=== PATIENT | male | born 1950 | race Asian ===

== ENCOUNTER 2019-07-16 05:28 | Emergency (ER) | payer MEDICARE, OTHER, SELFPAY ==
[2019-07-16 05:40] VITALS: BP 164/76; PULSE 75; RESP 18; TEMP 36.7; O2SAT 98; BMI 27.3
--- NOTE | 2019-07-16 06:09 | DI.CT.S_ITS ---
PROCEDURE: CT HEAD/BRAIN WO CON INDICATIONS: Syncope, hit his head with a fall, on Xarelto TECHNIQUE: Noncontrast 4.5 mm thick angled axial sections acquired from the foramen magnum to the vertex, with coronal and sagittal reformats. For radiation dose reduction, the following was used: automated exposure control, adjustment of mA and/or kV according to patient size. COMPARISON: None. FINDINGS: Image quality: Excellent. CSF spaces: Basal cisterns are patent. No extra-axial fluid collections. The ventricles are symmetric in size and shape. Brain: No intracranial bleeds or masses. There is cerebral volume loss for age, with resultant ventricular and sulcal prominence. There are periventricular and deep white matter chronic small vessel ischemic changes. There is intracranial internal carotid artery atherosclerosis. Skull and face: Calvarium and visualized facial bones appear intact, without suspicious lesions. Sinuses: Visualized sinuses and mastoids are clear. IMPRESSION: No acute process. Concordant with preliminary interpretation. Dictated by: Marylou Vang M.D. on 07/16/2019 at 7:58 Approved by: Marylou Vang M.D. on 07/16/2019 at 7:59
--- NOTE | 2019-07-16 06:09 | DI.RAD.S_ITS ---
PROCEDURE: XR CHEST 1V INDICATIONS: Syncope TECHNIQUE: One view of the chest was acquired. COMPARISON: None. FINDINGS: Surgical changes and devices: Left-sided pacer. Lungs and pleura: Lungs are clear. No pleural effusions or pneumothorax. Mediastinum: Mediastinal contours appear normal. Heart size is normal. Bones and chest wall: No suspicious bony lesions. Overlying soft tissues appear unremarkable. IMPRESSION: No acute process. Dictated by: Marylou Vang M.D. on 07/16/2019 at 7:30 Approved by: Marylou Vang M.D. on 07/16/2019 at 7:36
--- NOTE | 2019-07-16 06:13 | ED.GENADULT ---
HPI - General Adult <Isabella Bedolla MD - Last Filed: 07/16/19 06:56> General Chief complaint: Syncope Stated complaint: Syncopal episode x2 Time Seen by Provider: 07/16/19 05:43 History of Present Illness HPI narrative: 68-year-old gentleman with history of prior syncope leading to pacemaker placement, anticoagulation due to pacemaker placement, hypertension, hyperlipidemia who presents after 2 episodes of syncope and the 3rd of near syncope that was averted by having him lay back down. Apparently he got up this morning around 430 to go to the bathroom took a few steps forward and then apparently lost consciousness and fell backward. He did hit his head on the edge of a wall and does have a small contusion to the occiput. His reports that there was no loss of bowel or bladder and no significant seizure activity. He was somewhat slow in the 1st couple of minutes. He does not remember any palpation, shortness of breath or sensation prior to the episode. His helped him into the bathroom and apparently had another episode where he fell between the toilet and the wall landing on his left shoulder. He has no recollection of this. After that episode he again tried to sit up and was looking like he was going to pass out again and at that point his had him lay back down and called 911. He has been otherwise well until this episode approximately 430 this morning. Related Data Allergies Allergy/AdvReac Type Severity Reaction Status Date / Time No Known Drug Allergies Allergy Verified 07/16/19 06:49 Review of Systems <Isabella Bedolla MD - Last Filed: 07/16/19 06:56> Review of Systems Narrative: Denies ? fever ? cough ? cold ? chills ? chest pain ? dyspnea ? orthopnea ? wheezing ? abdominal pain ? change to bowel or bladder habits ? nausea vomiting ? skin changes ? rashes Patient History <Isabella Bedolla MD - Last Filed: 07/16/19 06:56> Medical History (Updated 07/16/19 @ 09:24 by Jim Calderon DO) Hyperlipidemia (Acute) Hypertension (Acute) Pacemaker (Acute) Syncope (Acute) Social History Smoking Status: Current every day smoker Exam <Isabella Bedolla MD - Last Filed: 07/16/19 06:56> Narrative Exam Narrative: General: Slightly pale but in no acute distress. Able to give a complete and coherent history. Well-nourished well-developed HEENT: Moist mucous membranes, normal sclera with reactive pupils, mild contusion to the left occipital area without bleeding or laceration Neck: No JVD, supple, no point tenderness along the cervical axial skeleton or occipital insertion points Respiratory: Lungs are clear to auscultation, no wheezing no rales no rhonchi. Full and symmetrical air movement Cardiac: Regular rate and rhythm no murmurs no bruits, pacemaker site in the left upper chest wall nontender non inflamed Abdomen: Soft nontender good bowel tones, no flank pain Skin: Warm and dry, no rashes Neurologic: Grossly neurologically intact with no obvious asymmetries or abnormalities Extremities: Developing ecchymosis to the anterior left shoulder from where he fell. He has full range of motion at the shoulder joint elbow and wrist without any bony tenderness. Skin is otherwise well perfused Psych: Cooperative, appropriate insight and affect Initial Vital Signs Initial Vital Signs: Vital Signs Temperature 98.0 F 07/16/19 05:40 Pulse Rate 75 07/16/19 05:40 Respiratory Rate 18 07/16/19 05:40 Blood Pressure 164/76 H 07/16/19 05:40 Pulse Oximetry 98 07/16/19 05:40 <Jim Calderon DO - Last Filed: 07/16/19 09:24> Initial Vital Signs Initial Vital Signs: Vital Signs Temperature 98.0 F 07/16/19 05:40 Pulse Rate 75 07/16/19 05:40 Respiratory Rate 18 07/16/19 05:40 Blood Pressure 164/76 H 07/16/19 05:40 Pulse Oximetry 98 07/16/19 05:40 Course <Isabella Bedolla MD - Last Filed: 07/16/19 06:56> Orders Ordered: ED Orders 07/16/19 05:35 EKG-12 Lead Routine 07/16/19 06:09 CT head/brain wo con Stat XR chest 1V Stat 07/16/19 06:15 Complete Blood Count AUTO DIFF Stat Comprehensive Metabolic Panel Stat D Dimer Stat Troponin & CK Cardiac Panel Stat 07/16/19 08:00 Urine Microscopic Stat 07/16/19 08:26 Troponin I Stat Sodium Chloride (Normal Saline 0.9%) 1,000 mls @ 150 mls/hr IV CONT SHERI Last Admin: 07/16/19 07:29 Dose: Not Given Documented by: MAURO Discontinued Medications Sodium Chloride (Normal Saline 0.9%) 500 mls @ 1,000 mls/hr IV BOLUS ONE Stop: 07/16/19 07:59 Last Admin: 07/16/19 07:25 Dose: 1,000 mls/hr Documented by: MAURO Vital Signs Vital signs: Vital Signs - 8 hr 07/16/19 05:40 07/16/19 07:52 Temperature 98.0 F Pulse Rate 75 61 Respiratory Rate 18 18 Blood Pressure 164/76 H Blood Pressure [Left Arm] 147/72 H Pulse Oximetry 98 99 <Jim Calderon DO - Last Filed: 07/16/19 09:24> Orders Ordered: ED Orders 07/16/19 05:35 EKG-12 Lead Routine 07/16/19 06:09 CT head/brain wo con Stat XR chest 1V Stat 07/16/19 06:15 Complete Blood Count AUTO DIFF Stat Comprehensive Metabolic Panel Stat D Dimer Stat Troponin & CK Cardiac Panel Stat 07/16/19 08:00 Urine Microscopic Stat 07/16/19 08:26 Troponin I Stat Sodium Chloride (Normal Saline 0.9%) 1,000 mls @ 150 mls/hr IV CONT SHERI Last Admin: 07/16/19 07:29 Dose: Not Given Documented by: MAURO Discontinued Medications Sodium Chloride (Normal Saline 0.9%) 500 mls @ 1,000 mls/hr IV BOLUS ONE Stop: 07/16/19 07:59 Last Admin: 07/16/19 07:25 Dose: 1,000 mls/hr Documented by: MAURO Vital Signs Vital signs: Vital Signs - 8 hr 07/16/19 05:40 07/16/19 07:52 Temperature 98.0 F Pulse Rate 75 61 Respiratory Rate 18 18 Blood Pressure 164/76 H Blood Pressure [Left Arm] 147/72 H Pulse Oximetry 98 99 Medical Decision Making <Isabella Bedolla MD - Last Filed: 07/16/19 06:56> Lab Data Lab results reviewed: Yes I reviewed the patient's lab results. Lab results narrative: Initial labs are unremarkable. Would like to repeat a 2nd troponin at approximately 8:15 a.m. to make sure that there's no increases to be more concerned about acute coronary syndrome. Result diagrams: 07/16/19 06:15 07/16/19 06:15 Labs: Lab Results 07/16/19 07/16/19 07/16/19 Range/Units 06:15 06:15 06:15 WBC 11.5 H (4.5-11.0) X10^3/uL RBC 3.95 L (4.5-5.9) X10^6/uL Hgb 12.6 L (13.5-17.5) g/dL Hct 37.6 L (41-53) % MCV 95.2 (80-100) fL MCH 31.9 (26-34) PG MCHC 33.5 (30-36) % RDW 12.5 (11.6-14.8) % Plt Count 180 (150-400) X10^3/uL Neut % (Auto) 50.0 (50-75) % Lymph % (Auto) 38.2 (25-40) % [place] % (Auto) 9.7 (3-14) % Eos % (Auto) 1.0 L (2-4) % Baso % (Auto) 1.1 (0-2) % Neut # (Auto) 5800 (5076-1279) /uL Lymph # (Auto) 4400 (5577-7765) /uL [place] # (Auto) 1100 H (0-900) /uL Eos # (Auto) 100 (0-450) /uL Baso # (Auto) 100 (0-100) /uL D-Dimer < 200 (<230) ng/mL Sodium 137 (137-145) mmol/L Potassium 4.4 (3.4-5.1) mmol/L Chloride 103 (98-107) mmol/L Carbon Dioxide 28 (22-32) mmol/L BUN 21 H (9-20) mg/dL Creatinine 1.00 (0.66-1.25) mg/dL Estimated GFR > 60.0 (>60) mL/min BUN/Creatinine Ratio 21.0 (6-22) Glucose 107 (80-110) mg/dL Calcium 8.5 (8.4-10.2) mg/dL Total Bilirubin 0.6 (0.2-1.3) mg/dL AST 28 (17-59) IU/L ALT 24 (<50) IU/L Alkaline Phosphatase 77 (38-126) U/L Total Creatine Kinase 69 (55-170) U/L CK-MB (CK-2) TNP CK-MB (CK-2) Rel Index TNP Troponin I < 0.012 (0.01-0.034) ng/mL Total Protein 8.1 (6.3-8.2) g/dL Albumin 4.4 (3.5-5.0) g/dL Globulin 3.7 (1.7-4.1) g/dL Albumin/Globulin Ratio 1.2 (1.0-2.8) Urine RBC (0-5/HPF) Urine WBC (0-5/HPF) Urine Bacteria (None) Ur Culture Indicated? Micro UA Comment 07/16/19 07/16/19 Range/Units 08:00 08:26 WBC (4.5-11.0) X10^3/uL RBC (4.5-5.9) X10^6/uL Hgb (13.5-17.5) g/dL Hct (41-53) % MCV (80-100) fL MCH (26-34) PG MCHC (30-36) % RDW (11.6-14.8) % Plt Count (150-400) X10^3/uL Neut % (Auto) (50-75) % Lymph % (Auto) (25-40) % [place] % (Auto) (3-14) % Eos % (Auto) (2-4) % Baso % (Auto) (0-2) % Neut # (Auto) (5696-0743) /uL Lymph # (Auto) (9423-9308) /uL [place] # (Auto) (0-900) /uL Eos # (Auto) (0-450) /uL Baso # (Auto) (0-100) /uL D-Dimer (<230) ng/mL Sodium (137-145) mmol/L Potassium (3.4-5.1) mmol/L Chloride (98-107) mmol/L Carbon Dioxide (22-32) mmol/L BUN (9-20) mg/dL Creatinine (0.66-1.25) mg/dL Estimated GFR (>60) mL/min BUN/Creatinine Ratio (6-22) Glucose (80-110) mg/dL Calcium (8.4-10.2) mg/dL Total Bilirubin (0.2-1.3) mg/dL AST (17-59) IU/L ALT (<50) IU/L Alkaline Phosphatase (38-126) U/L Total Creatine Kinase (55-170) U/L CK-MB (CK-2) CK-MB (CK-2) Rel Index Troponin I < 0.012 (0.01-0.034) ng/mL Total Protein (6.3-8.2) g/dL Albumin (3.5-5.0) g/dL Globulin (1.7-4.1) g/dL Albumin/Globulin Ratio (1.0-2.8) Urine RBC None seen (0-5/HPF) Urine WBC None seen (0-5/HPF) Urine Bacteria None seen (None) Ur Culture Indicated? Cult not indicated Micro UA Comment Microscopic normal Urine Dip Bedside Urine Glucose Negative Bedside Urine Bilirubin - Negative Bedside Urine Ketone - Negative Urine Specific [place] 1.020 Bedside Urine Occult Blood +/- Bedside Urine pH 6.0 Bedside Urine Protein +/- 15 Bedside Urine Urobilinogen - Negative Bedside Urine Nitrite - Negative Bedside Urine Leukocytes - Negative Esterase Point of care testing: Urine Dip Bedside Urine Glucose Negative Bedside Urine Bilirubin - Negative Bedside Urine Ketone - Negative Urine Specific [place] 1.020 Bedside Urine Occult Blood +/- Bedside Urine pH 6.0 Bedside Urine Protein +/- 15 Bedside Urine Urobilinogen - Negative Bedside Urine Nitrite - Negative Bedside Urine Leukocytes - Negative Esterase Imaging Data Chest x-ray: Attestation: I personally reviewed and interpreted this imaging study as follows: My Impression: No acute findings on chest x-ray, pacemaker is in place no widened mediastinum, no pneumothorax, no infiltrate, normal cardiac silhouette ECG Data Attestation: I personally reviewed and interpreted this ECG as follows: Interpretation: Sinus rhythm at a rate of 65 with a first-degree atrioventricular block. No significant ST T wave changes and no acute ischemia. MDM Narrative Medical decision making narrative: Pacemaker has been interrogated. There are no rhythm abnormalities appreciated over the time of his syncopal episodes. <Jim Calderon DO - Last Filed: 07/16/19 09:24> Lab Data Labs: Lab Results 07/16/19 07/16/19 07/16/19 Range/Units 06:15 06:15 06:15 WBC 11.5 H (4.5-11.0) X10^3/uL RBC 3.95 L (4.5-5.9) X10^6/uL Hgb 12.6 L (13.5-17.5) g/dL Hct 37.6 L (41-53) % MCV 95.2 (80-100) fL MCH 31.9 (26-34) PG MCHC 33.5 (30-36) % RDW 12.5 (11.6-14.8) % Plt Count 180 (150-400) X10^3/uL Neut % (Auto) 50.0 (50-75) % Lymph % (Auto) 38.2 (25-40) % [place] % (Auto) 9.7 (3-14) % Eos % (Auto) 1.0 L (2-4) % Baso % (Auto) 1.1 (0-2) % Neut # (Auto) 5800 (0001-0286) /uL Lymph # (Auto) 4400 (8461-6473) /uL [place] # (Auto) 1100 H (0-900) /uL Eos # (Auto) 100 (0-450) /uL Baso # (Auto) 100 (0-100) /uL D-Dimer < 200 (<230) ng/mL Sodium 137 (137-145) mmol/L Potassium 4.4 (3.4-5.1) mmol/L Chloride 103 (98-107) mmol/L Carbon Dioxide 28 (22-32) mmol/L BUN 21 H (9-20) mg/dL Creatinine 1.00 (0.66-1.25) mg/dL Estimated GFR > 60.0 (>60) mL/min BUN/Creatinine Ratio 21.0 (6-22) Glucose 107 (80-110) mg/dL Calcium 8.5 (8.4-10.2) mg/dL Total Bilirubin 0.6 (0.2-1.3) mg/dL AST 28 (17-59) IU/L ALT 24 (<50) IU/L Alkaline Phosphatase 77 (38-126) U/L Total Creatine Kinase 69 (55-170) U/L CK-MB (CK-2) TNP CK-MB (CK-2) Rel Index TNP Troponin I < 0.012 (0.01-0.034) ng/mL Total Protein 8.1 (6.3-8.2) g/dL Albumin 4.4 (3.5-5.0) g/dL Globulin 3.7 (1.7-4.1) g/dL Albumin/Globulin Ratio 1.2 (1.0-2.8) Urine RBC (0-5/HPF) Urine WBC (0-5/HPF) Urine Bacteria (None) Ur Culture Indicated? Micro UA Comment 07/16/19 07/16/19 Range/Units 08:00 08:26 WBC (4.5-11.0) X10^3/uL RBC (4.5-5.9) X10^6/uL Hgb (13.5-17.5) g/dL Hct (41-53) % MCV (80-100) fL MCH (26-34) PG MCHC (30-36) % RDW (11.6-14.8) % Plt Count (150-400) X10^3/uL Neut % (Auto) (50-75) % Lymph % (Auto) (25-40) % [place] % (Auto) (3-14) % Eos % (Auto) (2-4) % Baso % (Auto) (0-2) % Neut # (Auto) (1381-2344) /uL Lymph # (Auto) (3909-6930) /uL [place] # (Auto) (0-900) /uL Eos # (Auto) (0-450) /uL Baso # (Auto) (0-100) /uL D-Dimer (<230) ng/mL Sodium (137-145) mmol/L Potassium (3.4-5.1) mmol/L Chloride (98-107) mmol/L Carbon Dioxide (22-32) mmol/L BUN (9-20) mg/dL Creatinine (0.66-1.25) mg/dL Estimated GFR (>60) mL/min BUN/Creatinine Ratio (6-22) Glucose (80-110) mg/dL Calcium (8.4-10.2) mg/dL Total Bilirubin (0.2-1.3) mg/dL AST (17-59) IU/L ALT (<50) IU/L Alkaline Phosphatase (38-126) U/L Total Creatine Kinase (55-170) U/L CK-MB (CK-2) CK-MB (CK-2) Rel Index Troponin I < 0.012 (0.01-0.034) ng/mL Total Protein (6.3-8.2) g/dL Albumin (3.5-5.0) g/dL Globulin (1.7-4.1) g/dL Albumin/Globulin Ratio (1.0-2.8) Urine RBC None seen (0-5/HPF) Urine WBC None seen (0-5/HPF) Urine Bacteria None seen (None) Ur Culture Indicated? Cult not indicated Micro UA Comment Microscopic normal Urine Dip Bedside Urine Glucose Negative Bedside Urine Bilirubin - Negative Bedside Urine Ketone - Negative Urine Specific [place] 1.020 Bedside Urine Occult Blood +/- Bedside Urine pH 6.0 Bedside Urine Protein +/- 15 Bedside Urine Urobilinogen - Negative Bedside Urine Nitrite - Negative Bedside Urine Leukocytes - Negative Esterase Point of care testing: Urine Dip Bedside Urine Glucose Negative Bedside Urine Bilirubin - Negative Bedside Urine Ketone - Negative Urine Specific [place] 1.020 Bedside Urine Occult Blood +/- Bedside Urine pH 6.0 Bedside Urine Protein +/- 15 Bedside Urine Urobilinogen - Negative Bedside Urine Nitrite - Negative Bedside Urine Leukocytes - Negative Esterase MDM Narrative Medical decision making narrative: Dr aClderon: Received turned over from Dr. Bedolla. Review patient's history and physical. Reviewed his lab test. Perform my own independent exam. Patient has had a negative workup up to this point. Repeat troponin was negative. Did have what appears to be 3 syncopal episodes. Does not appear to be cardiac in origin. No signs of a stroke. Not consistent with seizure. Not consistent with hypoglycemia. Pacemaker interrogation shows no abnormalities at the time of the event. Patient is asymptomatic currently. I did occur at approximately 0400 hours the morning after he stood up to go to the bathroom. This is most likely a drop in blood pressure. He is taking blood pressure medicines has not had any recent changes to these medicines. Will have him contact his primary doctor tomorrow for a follow-up. He does take his blood pressure at home. He is given return precautions. Both he and his expressed understanding and agreement plan. Discharge Plan Departure Patient Disposition: Home Clinical Impression: Syncope Qualifiers: Syncope type: unspecified Qualified Code(s): R55 - Syncope and collapse Instructions: DI for Syncope in Adults (Fainting) Activity Restrictions/Additional Instructions: Continue all of your medications as directed. Recommend that tomorrow you contact your primary doctor for a follow-up. Return to the emergency department for any new or worsening symptoms Referrals: Jevon Tomlin MD [Primary Care Provider] -
[2019-07-16 06:29] LABS: Add Manual Diff / Slide Review NO; Basophils Absolute Auto 100 /uL (0-100); Basophils Percent Auto 1.1 % (0-2); Eosinophils Absolute Auto 100 /uL (0-450); Hematocrit 37.6 % (41-53); Hemoglobin 12.6 g/dL (13.5-17.5); Lymphocytes Absolute Auto 4400 /uL (1100-4500); Lymphocytes Percent Auto 38.2 % (25-40); Mean Corpuscular HGB Conc 33.5 % (30-36); Mean Corpuscular Hemoglobin 31.9 PG (26-34); Mean Corpuscular Volume 95.2 fL (80-100); Monocytes Absolute Auto 1100 /uL (0-900); Monocytes Percent Auto 9.7 % (3-14); Neutrophils Absolute Auto 5800 /uL (1500-7000); Platelet Count 180 X10^3/uL (150-400); Red Blood Cell Count 3.95 X10^6/uL (4.5-5.9); Red Cell Distribution Width 12.5 % (11.6-14.8); White Blood Cell Count 11.5 X10^3/uL (4.5-11.0)
[2019-07-16 06:34] LABS: Alanine Aminotransferase 24 IU/L (<50); Albumin 4.4 g/dL (3.5-5.0); Albumin Globulin Ratio 1.2 (1.0-2.8); Alkaline Phosphatase 77 U/L (38-126); Aspartate Aminotransferase 28 IU/L (17-59); Bilirubin Total 0.6 mg/dL (0.2-1.3); Blood Urea Nitrogen 21 mg/dL (9-20); Calcium 8.5 mg/dL (8.4-10.2); Carbon Dioxide 28 mmol/L (22-32); Chloride 103 mmol/L (98-107); Creatine Kinase 69 U/L (55-170); Estimated Glomerular Filt Rate > 60.0 mL/min (>60); Globulin 3.7 g/dL (1.7-4.1); Glucose 107 mg/dL (80-110); HEMOLYSIS 35 (0-50); Potassium 4.4 mmol/L (3.4-5.1); Sodium 137 mmol/L (137-145); Total Protein 8.1 g/dL (6.3-8.2)
[2019-07-16 06:41] LABS: D Dimer < 200 ng/mL (<230)
[2019-07-16 06:46] LABS: Troponin I < 0.012 ng/mL (0.01-0.034)
--- NOTE | 2019-07-16 07:03 | PC.NURSE ---
Pt given water to drink with ok from Dr Bedolla
[2019-07-16] MEDS: SODIUM CHLORIDE 0.9% 500 ML 1000 ML IV (07:25)
[2019-07-16 07:52] VITALS: BP 147/72; PULSE 61; RESP 18; O2SAT 99
[2019-07-16 08:19] LABS: Bacteria Urine None Seen; RBC Urine None Seen (0-5/HPF); WBC Urine None Seen (0-5/HPF)
[2019-07-16 08:24] LABS: Culture Indicated Urine Cult Not Indicated; Urine Comments Microscopic Normal
[2019-07-16 08:56] LABS: Troponin I < 0.012 ng/mL (0.01-0.034)
[2019-07-16 09:49] VITALS: BP 130/76; PULSE 63; RESP 16; O2SAT 99
== END 2019-07-16 09:51 | disposition home or self-care (01) ==
PROVIDERS: Emergency Medicine; Emergency Provider Emergency Medicine; PCP Family Medicine
DX: R55 Syncope and collapse (principal); I10 Essential (primary) hypertension; E78.5 Hyperlipidemia, unspecified; S00.03XA Contusion of scalp, initial encounter; Z95.0 Presence of cardiac pacemaker; Z79.01 Long term (current) use of anticoagulants
CPT/HCPCS: 36415; 70450; 71045; 80053; 81003; 81015; 82550; 84484; 85025; 85379; 93005; 96360; 96361; 99284; 99285

== ENCOUNTER 2022-05-02 09:19 | Emergency (ER) | payer MEDICARE, OTHER, SELFPAY ==
[2022-05-02] VITALS (11 sets, daily range): BP systolic 102–131; BP diastolic 50–72; PULSE 65–74; RESP 14–25; TEMP 36.9; O2SAT 97–99; BMI 27.8
--- NOTE | 2022-05-02 09:39 | DI.RAD.S_ITS ---
PROCEDURE: XR CHEST 1V INDICATIONS: suspected sepsis TECHNIQUE: One view of the chest was acquired. COMPARISON: [facility], CR, XR CHEST 1V, 07/16/2019, 6:05. FINDINGS: Surgical changes and devices: Dual-chamber left-sided pacemaker present. Lungs and pleura: Minimal left basilar atelectasis and infiltrate. Right lung and both pleural spaces clear. Mediastinum: Mediastinal contours appear normal. Heart size is normal. Bones and chest wall: No suspicious bony lesions. Overlying soft tissues appear unremarkable. IMPRESSION: Minimal left basilar atelectasis and or infiltrate Approved by: Yony Garza M.D. on 05/02/2022 at 9:42
[2022-05-02] MEDS: SODIUM CHLORIDE 0.9% 1,000 ML 1000 ML IV (09:55)
[2022-05-02 10:41] LABS: Add Manual Diff / Slide Review NO; Basophils Absolute Auto 100 /uL (0-100); Basophils Percent Auto 0.7 % (0-2); Eosinophils Absolute Auto 0 /uL (0-450); Hematocrit 32.8 % (41-53); Hemoglobin 10.9 g/dL (13.5-17.5); Lymphocytes Absolute Auto 3400 /uL (1100-4500); Lymphocytes Percent Auto 41.4 % (25-40); Mean Corpuscular HGB Conc 33.2 % (30-36); Mean Corpuscular Hemoglobin 30.3 PG (26-34); Mean Corpuscular Volume 91.2 fL (80-100); Monocytes Absolute Auto 1500 /uL (0-900); Monocytes Percent Auto 18.6 % (3-14); Neutrophils Absolute Auto 3200 /uL (1500-7000); Neutrophils Percent Auto 39.3 % (50-75); Platelet Count 165 X10^3/uL (150-400); Red Blood Cell Count 3.59 X10^6/uL (4.5-5.9); Red Cell Distribution Width 12.7 % (11.6-14.8); White Blood Cell Count 8.2 X10^3/uL (4.5-11.0)
[2022-05-02 10:48] LABS: Influenza B - CEPHEID Flu B NEGATIVE (NEGATIVE); Respiratory Syncytial Virus Negative (Negative)
[2022-05-02 10:51] LABS: COVID-19 CEPHEID 4-PLEX PCR Negative (Negative)
[2022-05-02 10:53] LABS: Influenza A - CEPHEID Flu A POSITIVE (NEGATIVE)
--- NOTE | 2022-05-02 10:53 | ED.FEVER ---
HPI - Fever General Chief Complaint: Fever Stated Complaint: cough and low blood pressure, sent by [facility] Time Seen by Provider: 05/02/22 10:24 Source: patient and family Mode of arrival: Ambulatory Limitations: no limitations History of Present Illness HPI Narrative: This is a 71-year-old male with history of psoriasis and is on Humira, hypertension, dyslipidemia, atrial fibrillation on Xarelto and a pacemaker in place. Patient notes his blood pressure has been low recently and he is had a persistent cough. Notes his blood pressure medications were doubled about a month ago, on several office visits he has been 100-90 systolic held his blood pressure medications about 3 or 4 days ago and was low since. He states his blood pressure was in the 140 range when his physician increased it. Patient states he is had a persistent cough for several weeks, in the morning he will have productive yellow-green sputum. States it tends to be a little bit worse at night. He is had temps of 99 F, he denies chest pain or pressure. He feels wheezy when he coughs but does not feel short of breath while resting. Denies any new swelling of extremities. He denies any hemoptysis. No nausea or vomiting. Patient denies any diarrhea or constipation. He has felt lightheaded. He has not had any syncope. He has tried benzoate for his cough. He had a CT as an outpatient 04 30 and was told to follow-up with Rheumatology, Hematology and is supposed to follow up with pulmonology in a month. He states they did place him on any new medications. States only surgeries were pacemaker. No tobacco he quit 1986, occasional alcohol, no illicit. Dr. Pantoja is his primary care. He does follow with rheumatology regularly. Related Data Previous Rx's Medication Instructions Recorded albuterol sulfate 90 mcg/actuation 2 inh inhalation Q4-6H PRN 05/02/22 breath activated powder inhaler shortness of breath or wheezing #1 ea amoxicillin 875 mg-potassium 1 tab PO Q12H #20 tabs 05/02/22 clavulanate 125 mg tablet Allergies Allergy/AdvReac Type Severity Reaction Status Date / Time No Known Drug Allergies Allergy Verified 05/02/22 09:38 Review of Systems Review of Systems ROS Unobtainable: All systems reviewed & are unremarkable except as noted in HPI and below Patient History Medical History Hyperlipidemia Hypertension Pacemaker Syncope Social History Smoking Status: Former smoker Smoking Status: Former smoker alcohol intake frequency: 0-2 drinks per day Substance Use Type: does not use Exam Narrative Exam Narrative: GENERAL: Alert and oriented x three, male in mild distress. HEENT: Head normocephalic, atraumatic, EOMI, pupils reactive, face symmetric, moist mucous membranes NECK: Supple, full range of motion CARDIOVASCULAR: Regular rate and rhythm without murmurs, rubs or gallops. No JVD appreciated. No swelling bilateral lower extremities. RESPIRATORY: Breath sounds equal bilaterally, no wheezes positive for bilateral crackles in bases, no rhonchi. No tachypnea accessory muscle use. Patient has mild dry cough in the room. Speaks in full sentences. ABDOMEN: Soft, nontender. Normoactive bowel sounds all 4 quadrants. No guarding or rebound, rigidity, no mass : No CVA tenderness EXTREMITIES: Normal range of motion, no clubbing or edema. Neurovascularly intact NEUROLOGICAL: Cranial nerves II through XII grossly intact. Moving all extremities SKIN: Warm, dry, no petechiae, no rashes or lesions. Initial Vital Signs Initial Vital Signs: Vital Signs Temperature 98.5 F 05/02/22 09:32 Pulse Rate 70 05/02/22 09:32 Respiratory Rate 14 05/02/22 09:32 Blood Pressure 102/50 L 05/02/22 09:32 Pulse Oximetry 99 05/02/22 09:32 Oxygen Delivery Method 05/02/22 09:32 Course Orders Ordered: ED Orders 05/02/22 09:50 Covid-19 + FLU A/B + RSV - PCR Stat 05/02/22 10:25 BNP [NT-proBNP (BNP-Adult 18+)] Stat Complete Blood Count AUTO DIFF Stat Comprehensive Metabolic Panel Stat Lactate (Lactic Acid) Stat Lipase Stat Partial Thromboplastin Time Stat Procalcitonin Stat Prothrombin Time INR Stat Troponin I Stat 05/02/22 11:37 Blood Culture Stat Discontinued Medications Sodium Chloride (Normal Saline 0.9%) 1,000 mls @ 1,000 mls/hr IV BOLUS ONE Stop: 05/02/22 10:38 Last Infusion: 05/02/22 11:59 Dose: 0 mls/hr Documented By: Admin: 05/02/22 09:55 Dose: 1,000 mls/hr Documented By: ROSALIE Vital Signs Vital signs: Vital Signs - 8 hr 05/02/22 10:45 05/02/22 10:45 05/02/22 11:00 Pulse Rate 66 Respiratory Rate 19 Blood Pressure 130/71 125/65 Pulse Oximetry 97 05/02/22 11:00 05/02/22 11:15 05/02/22 11:15 Pulse Rate 66 66 Respiratory Rate 23 22 Blood Pressure 128/72 Pulse Oximetry 97 98 05/02/22 11:30 05/02/22 11:30 05/02/22 11:45 Pulse Rate 65 Respiratory Rate 25 H Blood Pressure 126/69 120/65 Pulse Oximetry 98 05/02/22 11:45 Pulse Rate 65 Respiratory Rate 25 H Blood Pressure Pulse Oximetry 98 MDM - Fever Lab Data Result diagrams: 05/02/22 10:25 05/02/22 10:25 Labs: Lab Results 05/02/22 05/02/22 05/02/22 Range/Units 09:50 10:25 10:25 WBC 8.2 (4.5-11.0) X10^3/uL RBC 3.59 L (4.5-5.9) X10^6/uL Hgb 10.9 L (13.5-17.5) g/dL Hct 32.8 L (41-53) % MCV 91.2 (80-100) fL MCH 30.3 (26-34) PG MCHC 33.2 (30-36) % RDW 12.7 (11.6-14.8) % Plt Count 165 (150-400) X10^3/uL Neut % (Auto) 39.3 L (50-75) % Lymph % (Auto) 41.4 H (25-40) % [place] % (Auto) 18.6 H (3-14) % Eos % (Auto) 0.0 L (2-4) % Baso % (Auto) 0.7 (0-2) % Neut # (Auto) 3200 (3135-8165) /uL Lymph # (Auto) 3400 (5018-2043) /uL [place] # (Auto) 1500 H (0-900) /uL Eos # (Auto) 0 (0-450) /uL Baso # (Auto) 100 (0-100) /uL PT 14.3 H (10.1-12.7) SECONDS INR 1.2 (0.9-1.3) APTT 32 (26-36) SECONDS Sodium (137-145) mmol/L Potassium (3.4-5.1) mmol/L Chloride (98-107) mmol/L Carbon Dioxide (22-32) mmol/L BUN (9-20) mg/dL Creatinine (0.66-1.25) mg/dL Estimated GFR (>60) mL/min BUN/Creatinine Ratio (6-22) Glucose (80-110) mg/dL Lactate (0.7-2.1) mmol/L Calcium (8.4-10.2) mg/dL Total Bilirubin (0.2-1.3) mg/dL AST (17-59) IU/L ALT (<50) IU/L Alkaline Phosphatase (38-126) U/L Troponin I (0.01-0.034) ng/mL NT-Pro-B Natriuret Pep (<125) pg/mL Total Protein (6.3-8.2) g/dL Albumin (3.5-5.0) g/dL Globulin (1.7-4.1) g/dL Albumin/Globulin Ratio (1.0-2.8) Lipase (23-300) U/L Procalcitonin (<0.5) ng/mL SARS-CoV-2 (PCR) Negative (Negative) Influenza A (RT-PCR) Flu a positive H (NEGATIVE) Influenza B (RT-PCR) Flu b negative (NEGATIVE) RSV (PCR) Negative (Negative) 05/02/22 05/02/22 05/02/22 Range/Units 10:25 10:25 10:25 WBC (4.5-11.0) X10^3/uL RBC (4.5-5.9) X10^6/uL Hgb (13.5-17.5) g/dL Hct (41-53) % MCV (80-100) fL MCH (26-34) PG MCHC (30-36) % RDW (11.6-14.8) % Plt Count (150-400) X10^3/uL Neut % (Auto) (50-75) % Lymph % (Auto) (25-40) % [place] % (Auto) (3-14) % Eos % (Auto) (2-4) % Baso % (Auto) (0-2) % Neut # (Auto) (7013-9712) /uL Lymph # (Auto) (7222-8030) /uL [place] # (Auto) (0-900) /uL Eos # (Auto) (0-450) /uL Baso # (Auto) (0-100) /uL PT (10.1-12.7) SECONDS INR (0.9-1.3) APTT (26-36) SECONDS Sodium 136 L (137-145) mmol/L Potassium 3.4 (3.4-5.1) mmol/L Chloride 103 (98-107) mmol/L Carbon Dioxide 25 (22-32) mmol/L BUN 21 H (9-20) mg/dL Creatinine 1.02 (0.66-1.25) mg/dL Estimated GFR > 60 (>60) mL/min BUN/Creatinine Ratio 20.6 (6-22) Glucose 139 H (80-110) mg/dL Lactate 1.0 (0.7-2.1) mmol/L Calcium 7.2 L (8.4-10.2) mg/dL Total Bilirubin 0.5 (0.2-1.3) mg/dL AST 23 (17-59) IU/L ALT 25 (<50) IU/L Alkaline Phosphatase 64 (38-126) U/L Troponin I < 0.012 (0.01-0.034) ng/mL NT-Pro-B Natriuret Pep 56 (<125) pg/mL Total Protein 7.1 (6.3-8.2) g/dL Albumin 3.3 L (3.5-5.0) g/dL Globulin 3.8 (1.7-4.1) g/dL Albumin/Globulin Ratio 0.9 L (1.0-2.8) Lipase 163 (23-300) U/L Procalcitonin 0.19 (<0.5) ng/mL SARS-CoV-2 (PCR) (Negative) Influenza A (RT-PCR) (NEGATIVE) Influenza B (RT-PCR) (NEGATIVE) RSV (PCR) (Negative) Imaging Data Chest x-ray: Radiologist's Impression: [address] [address] XRay Report Signed Patient: Maurice Calle MR#: [id number] : 1950 Acct:[id number] Age/Sex: 71 / M Date of Service: 05/02/22 Loc: ED Accession Number: [id number] ?? Procedure: XR chest 1V Ordering Provider: Jessie Pisano D.O. PROCEDURE:? XR CHEST 1V ? INDICATIONS:? suspected sepsis ? TECHNIQUE:? One view of the chest was acquired.? ? COMPARISON:? [facility], CR, XR CHEST 1V, 07/16/2019, 6:05. ? FINDINGS:? ? Surgical changes and devices:? Dual-chamber left-sided pacemaker present. ? Lungs and pleura:? Minimal left basilar atelectasis and infiltrate.? Right lung and both pleural spaces clear. ? Mediastinum:? Mediastinal contours appear normal.? Heart size is normal.? ? Bones and chest wall:? No suspicious bony lesions.? Overlying soft tissues appear unremarkable.? ? IMPRESSION:? Minimal left basilar atelectasis and or infiltrate ? ? ? Approved by: Yony Garza M.D. on 05/02/2022 at 9:42? ECG Data Attestation: I personally reviewed and interpreted this ECG as follows: Prior ECG tracings: available for review Interpretation: Sinus rhythm with first-degree AV block. Rate of 70 1p are 210, QRS of 92 and QTC of 428. No acute ST changes appreciated. Patient does not have priors for comparison MDM Narrative Medical decision making narrative: This is a 71-year-old male with history of AFib, on Xarelto, Humira and persistent cough for the past several weeks some hypotension which may have been initiated by having his blood pressure medications increased he states his systolic was in the 140s and they told him he needed to double his antihypertensive. Has held it for the last 3 days is still hypotensive subjective fevers T-max at home was 99. Yellow-greenish sputum, he had a CT outpatient attempting to get this record. Patient does have some immune suppression, cardiac history they should explored as well. Labs today show hemoglobin of was 12 in 2019, white count is 8.2 with platelets of 165, patient has elevated lympho and monocytes, normal coags, BUN 21 with a sodium of 136 otherwise normal electrolytes, lactate negative, procalcitonin, troponin and BNP show no significant change. Patient is influenza positive. Patient's outpatient CT report shows dual lead pacer similar to prior chest radiograph, no pericardial effusion, aortic vessel and central pulmonary is normal size. No hiatal hernia. Patient has numerous nodular opacity seen involving the left upper lobe medially and mild atelectasis on the right lower lobe. Read is nonspecific although it notes suspicion for chronic infection, neoplasm possible but considered less likely and recommends short-term follow-up in 6-12 weeks. Discussed with patient likely illicit symptoms are secondary to influenza a but he is immune suppressed on Humira so I would treat him for possible bacterial infection and follow-up with subspecialty that he is already has in place for further evaluation of left upper lobe changes. Discharge Plan Departure Patient Disposition: Home Clinical Impression: Influenza A, Pneumonia Instructions: DI for Influenza -- Adult Activity Restrictions/Additional Instructions: You have been diagnosed with influenza A. This is a viral illness that typically last 10 days. I did review your labs and CT of chest from 2 days ago I would recommend an antibiotic there suspicion for chronic infection and this may be responsive for your long-term cough. Please do follow-up with the desktop manager, hematology and your technical support manager in case this does not improve with antibiotics. I would also recommend holding your blood pressure medications and restarting at her baseline dose when it is more appropriate I would not continued the doubled dose. You may use your inhaler with your spacer every 4 hours as needed for cough if you find it helpful. Prescriptions sent to [facility] in [place] Please return for fevers, increasing chest pain, shortness of breath, coughing up blood or new swelling in her extremities, passing out or other new or concerning changes. Prescriptions: New amoxicillin-pot clavulanate 875-125 mg tablet 1 tab PO Q12H Qty: 20 0RF albuterol sulfate 90 mcg/actuation aerosol powdr breath activated 2 inh inhalation Q4-6H PRN (Reason: shortness of breath or wheezing) Qty: 1 0RF Referrals: Jevon Tomlin MD [Primary Care Provider] - Visit Report Forms: Patient Portal/API
[2022-05-02 10:58] LABS: INR 1.2 (0.9-1.3); Prothrombin Time 14.3 SECONDS (10.1-12.7)
[2022-05-02 11:01] LABS: PTT Partial Thromboplastin Tim 32 SECONDS (26-36)
[2022-05-02 11:06] LABS: Alanine Aminotransferase 25 IU/L (<50); Albumin 3.3 g/dL (3.5-5.0); Albumin Globulin Ratio 0.9 (1.0-2.8); Alkaline Phosphatase 64 U/L (38-126); Aspartate Aminotransferase 23 IU/L (17-59); BUN Creatinine Ratio 20.6 (6-22); Bilirubin Total 0.5 mg/dL (0.2-1.3); Blood Urea Nitrogen 21 mg/dL (9-20); Calcium 7.2 mg/dL (8.4-10.2); Carbon Dioxide 25 mmol/L (22-32); Chloride 103 mmol/L (98-107); Estimated Glomerular Filt Rate > 60 mL/min (>60); Globulin 3.8 g/dL (1.7-4.1); Glucose 139 mg/dL (80-110); HEMOLYSIS < 15 (0-50); Lipase 163 U/L (23-300); Potassium 3.4 mmol/L (3.4-5.1); Sodium 136 mmol/L (137-145); Total Protein 7.1 g/dL (6.3-8.2)
[2022-05-02 11:17] LABS: NT-proBNP (BNP-Adult 18+) 56 pg/mL (<125); Troponin I < 0.012 ng/mL (0.01-0.034)
[2022-05-02 11:23] LABS: Procalcitonin 0.19 ng/mL (<0.5)
== END 2022-05-02 12:09 | disposition home or self-care (01) ==
PROVIDERS: Emergency Provider Emergency Medicine; PCP Family Medicine
DX: J10.1 Influenza due to other identified influenza virus with other respiratory manifestations (principal); J18.9 Pneumonia, unspecified organism; I95.9 Hypotension, unspecified; Z20.822 Contact with and (suspected) exposure to COVID-19; I44.0 Atrioventricular block, first degree
CPT/HCPCS: 0241U; 36415; 71045; 80053; 83605; 83690; 83880; 84145; 84484; 85025; 85610; 85730; 87040; 93005; 93010; 96360; 96361; 99284